=== PATIENT | female | born 1950 | race Caucasian/White ===

== ENCOUNTER 2017-06-05 17:59 | Inpatient (IN) | payer OTHER ==
[~2017-06-05] VITALS: Ht 167.6 cm; Wt 72.1 kg
[~2017-06-05 17:59] MED LIST: ADULT LOW DOSE81 MG PO; ALDACTONE25 M1 PO; AMBIEN PO; AMIODARONE HCL200 M1 PO; AMIODARONE HCL400 M1 PO; ASPIR-LOW81 M1 PO; ATORVASTATIN CA10 M1 PO; BISOPROLOL FUMAR5 M1 PO; CALCIUM600 M1 PO; CALCIUM600 MG PO; CARVEDILOL12.5 M1 PO; CARVEDILOL25 M1 PO; COREG12.5 M1 PO; COZAAR50 M1 PO; FISH OIL 1,2001 EAC4 PO; FLECAINIDE ACET50 M1 PO; INDERAL PO; LASIX40 M1 PO; LISINOPRIL5 MG PO; MULTIVITAMIN1 TAB PO; OMEPRAZOLE40 M2 PO; PAROXETINE HCL10 M2 PO; PAXIL CR12.5 MG PO; POTASSIUM CHLO20 ME3 PO; PREDNISONE20 M1 PO; PROAIR HFA8.5 GM IH; PROPRANOLOL HCL80 M3 PO; SAVAYSA60 MG PO; SIMVASTATIN40 M1 PO; SIMVASTATIN40 MG PO; TYLENOL325 M2 PO; VENTOLIN HFA18 G2 INH; VITAMIN D PO; VITAMIN D2000 UNIT PO; XARELTO20 M1 PO
[2017-06-05] MEDS ORDERED: TYLENOL EXTRA500 M1 PO (19:41)
[2017-06-05] MEDS ORDERED: LIPITOR10 M1 PO (19:42)
[2017-06-05] MEDS ORDERED: ASPIRIN EC81 MG PO (19:42)
[2017-06-05] MEDS ORDERED: AUGMENTIN 875-1 EAC2 PO (19:42)
[2017-06-05] MEDS ORDERED: ZIAC 2.5-6.251 EACH PO ×2 (19:43→19:51)
[2017-06-05] MEDS ORDERED: CALCIUM 600 +1 EA10 PO (19:44)
[2017-06-05] MEDS ORDERED: HYDROCODON-ACE1 EA16 PO (19:46)
[2017-06-05] MEDS ORDERED: DULERA 200 MCG/13 G1 INH (19:46)
[2017-06-05] MEDS ORDERED: COZAAR25 M1 PO (19:47)
[2017-06-05] MEDS ORDERED: OMEPRAZOLE40 M2 PO (19:47)
[2017-06-05] MEDS ORDERED: PAXIL10 M1 PO (19:48)
[2017-06-05] MEDS ORDERED: SPIRONOLACTONE25 M2 PO (19:49)
[2017-06-05] MEDS ORDERED: D3-20002000 UNIT PO (19:51)
[2017-06-05] MEDS ORDERED: XARELTO20 M1 PO (19:51)
[2017-06-05 21:05] LABS: BASO ABSOLUTE COUNT 0.1 tho/cmm (0.0-0.2); EOS % 1.9 % (0-7); EOSINOPHIL ABSOLUTE COUNT 0.2 tho/cmm (0.0-0.7); IMMATURE GRANULOCYTES ABSOLUTE 0.01 tho/cmm (0-0.03); IMMATURE GRANULOCYTES PERCENT 0.1 % (0-0.3); LYMPH % 23.7 % (20-45); LYMPH ABSOLUTE COUNT 1.9 tho/cmm (0.8-4.5); MCH (MEAN CORPUSCULAR HGB) 21.9 pg (28.0-32.0); MCV (MEAN CELL VOLUME) 73.4 fl (82.0-96.0); MEAN PLATELET VOLUME 9.4 cmc (9.4-12.4); MONO % 7.6 % (0-12); MONOCYTE ABSOLUTE COUNT 0.6 tho/cmm (0.0-1.2); NEUTROPHIL ABSOLUTE COUNT 5.2 tho/cmm (1.6-8.0); NEUTROPHIL-AUTOMATED 5.2 tho/cmm (1.6-8.0); NEUTROPHILS % 65.7 % (40-80); PLATELET COUNT 291 tho/cmm (150-450); WHITE BLOOD COUNT 7.9 tho/cmm (4.0-10.0)
[2017-06-05 21:08] LABS: HCT-HEMATOCRIT 23.5 % (34.0-49.0); MCHC MEAN CORPUSCULAR HGB CONC 29.8 % (32.0-36.0)
[2017-06-05 21:10] LABS: INR 1.4 INR (0.9-1.1); PROTHROMBIN TIME 16.9 SECONDS (9.0-13.6)
[2017-06-05 21:22] LABS: ALB/GLOB RATIO 0.9 (0.8-2.0); ALBUMIN 3.2 g/dl (3.5-5.0); ALKALINE PHOSPHATASE 74 U/L (33-138); ALT/SGPT 16 U/L (12-78); ANION GAP 10 mmol/L (0-20); AST/SGOT 13 U/L (10-40); BILIRUBIN,TOTAL 0.7 mg/dl (0-1.5); BLOOD UREA NITROGEN 14 mg/dl (6-24); CARBON DIOXIDE-VENOUS 25 mmol/L (22-32); CHLORIDE 106 mmol/l (96-110); CREATININE 1.04 mg/dl (0.50-1.10); GLUCOSE 89 mg/dL (70-110); SODIUM 137 mmol/L (135-145); eGFR VALUE FOR BLACK 66 mL/Min
[2017-06-06 05:31] LABS: BASO % 0.8 % (0-2); BASO ABSOLUTE COUNT 0.1 tho/cmm (0.0-0.2); EOS % 3.3 % (0-7); EOSINOPHIL ABSOLUTE COUNT 0.2 tho/cmm (0.0-0.7); HGB-HEMOGLOBIN 6.6 gm/dl (12.0-15.5); IMMATURE GRANULOCYTES ABSOLUTE 0.01 tho/cmm (0-0.03); IMMATURE GRANULOCYTES PERCENT 0.2 % (0-0.3); LYMPH ABSOLUTE COUNT 1.7 tho/cmm (0.8-4.5); MCH (MEAN CORPUSCULAR HGB) 21.9 pg (28.0-32.0); MCV (MEAN CELL VOLUME) 73.2 fl (82.0-96.0); MEAN PLATELET VOLUME 9.3 cmc (9.4-12.4); MONO % 8.6 % (0-12); MONOCYTE ABSOLUTE COUNT 0.5 tho/cmm (0.0-1.2); NEUTROPHIL ABSOLUTE COUNT 3.8 tho/cmm (1.6-8.0); NEUTROPHIL-AUTOMATED 3.8 tho/cmm (1.6-8.0); NEUTROPHILS % 60.1 % (40-80); PLATELET COUNT 273 tho/cmm (150-450); RED BLOOD COUNT 3.02 mil/cmm (4.00-5.20); RED CELL DISTRIBUTION WIDTH 15.9 % (12.4-16.4); WHITE BLOOD COUNT 6.3 tho/cmm (4.0-10.0)
[2017-06-06 05:40] LABS: HCT-HEMATOCRIT 22.1 % (34.0-49.0); MCHC MEAN CORPUSCULAR HGB CONC 29.9 % (32.0-36.0)
[2017-06-06 05:49] LABS: ANION GAP 15 mmol/L (0-20); BLOOD UREA NITROGEN 13 mg/dl (6-24); CALCIUM 8.6 mg/dl (8.5-10.5); CARBON DIOXIDE-VENOUS 23 mmol/L (22-32); CHLORIDE 111 mmol/l (96-110); CREATININE 0.99 mg/dl (0.50-1.10); GLUCOSE 82 mg/dL (70-110); POTASSIUM 3.7 mmol/L (3.7-5.1); SODIUM 145 mmol/L (135-145); eGFR VALUE FOR BLACK 70 mL/Min
[2017-06-06 17:00] LABS: MCV (MEAN CELL VOLUME) 74.5 fl (82.0-96.0); RED CELL DISTRIBUTION WIDTH 16.6 % (12.4-16.4)
[2017-06-06 17:27] LABS: HCT-HEMATOCRIT 28.1 % (34.0-49.0); HGB-HEMOGLOBIN 8.7 gm/dl (12.0-15.5)
[2017-06-06] MEDS ORDERED: BISOPROLOL FUMAR5 M1 PO (17:35)
[2017-06-07 05:20] LABS: INR 1.2 INR (0.9-1.1); PROTHROMBIN TIME 13.9 SECONDS (9.0-13.6)
[2017-06-07 05:22] LABS: HCT-HEMATOCRIT 28.6 % (34.0-49.0); HGB-HEMOGLOBIN 8.9 gm/dl (12.0-15.5); MCV (MEAN CELL VOLUME) 74.3 fl (82.0-96.0); RED CELL DISTRIBUTION WIDTH 16.9 % (12.4-16.4)
[2017-06-07 05:37] LABS: ANION GAP 13 mmol/L (0-20); BLOOD UREA NITROGEN 12 mg/dl (6-24); CALCIUM 8.9 mg/dl (8.5-10.5); CARBON DIOXIDE-VENOUS 23 mmol/L (22-32); CHLORIDE 112 mmol/l (96-110); CREATININE 0.92 mg/dl (0.50-1.10); GLUCOSE 97 mg/dL (70-110); POTASSIUM 3.4 mmol/L (3.7-5.1); SODIUM 145 mmol/L (135-145); eGFR VALUE FOR BLACK 76 mL/Min
[2017-06-07 17:06] LABS: HCT-HEMATOCRIT 28.6 % (34.0-49.0); HGB-HEMOGLOBIN 8.6 gm/dl (12.0-15.5); MCV (MEAN CELL VOLUME) 76.1 fl (82.0-96.0); RED CELL DISTRIBUTION WIDTH 17.2 % (12.4-16.4)
[2017-06-08 04:44] LABS: BASO % 0.9 % (0-2); BASO ABSOLUTE COUNT 0.1 tho/cmm (0.0-0.2); EOSINOPHIL ABSOLUTE COUNT 0.3 tho/cmm (0.0-0.7); HCT-HEMATOCRIT 26.2 % (34.0-49.0); HGB-HEMOGLOBIN 8.1 gm/dl (12.0-15.5); IMMATURE GRANULOCYTES ABSOLUTE 0.01 tho/cmm (0-0.03); IMMATURE GRANULOCYTES PERCENT 0.1 % (0-0.3); LYMPH % 19.6 % (20-45); LYMPH ABSOLUTE COUNT 1.6 tho/cmm (0.8-4.5); MCH (MEAN CORPUSCULAR HGB) 23.3 pg (28.0-32.0); MCHC MEAN CORPUSCULAR HGB CONC 30.9 % (32.0-36.0); MCV (MEAN CELL VOLUME) 75.5 fl (82.0-96.0); MEAN PLATELET VOLUME 9.5 cmc (9.4-12.4); MONO % 7.5 % (0-12); MONOCYTE ABSOLUTE COUNT 0.6 tho/cmm (0.0-1.2); NEUTROPHIL ABSOLUTE COUNT 5.5 tho/cmm (1.6-8.0); NEUTROPHIL-AUTOMATED 5.5 tho/cmm (1.6-8.0); NEUTROPHILS % 67.9 % (40-80); PLATELET COUNT 275 tho/cmm (150-450); RED BLOOD COUNT 3.47 mil/cmm (4.00-5.20); RED CELL DISTRIBUTION WIDTH 17.4 % (12.4-16.4); WHITE BLOOD COUNT 8.2 tho/cmm (4.0-10.0)
[2017-06-08 04:55] LABS: ANION GAP 10 mmol/L (0-20); BLOOD UREA NITROGEN 15 mg/dl (6-24); CALCIUM 8.9 mg/dl (8.5-10.5); CARBON DIOXIDE-VENOUS 22 mmol/L (22-32); CHLORIDE 112 mmol/l (96-110); CREATININE 0.96 mg/dl (0.50-1.10); GLUCOSE 88 mg/dL (70-110); POTASSIUM 3.9 mmol/L (3.7-5.1); SODIUM 140 mmol/L (135-145); eGFR VALUE FOR BLACK 72 mL/Min
[2017-06-08] MEDS ORDERED: ANUSOL-HC25 MG PR (14:05)
== END 2017-06-08 14:55 | DRG 394 ==
LOC: PCUA 17:59
PROVIDERS: Family Medicine; Nurse Practitioner; Specialist; ADMIT Family Medicine
PROC: 0DB98ZX Excision of Duodenum, Via Natural or Artificial Opening Endoscopic, Diagnostic (ICD-10-PCS; principal; 2017-06-07)
PROC: 0DBK8ZZ Excision of Ascending Colon, Via Natural or Artificial Opening Endoscopic (ICD-10-PCS; 2017-06-07)
DX: K64.4 Residual hemorrhoidal skin tags (principal); I50.42 Chronic combined systolic (congestive) and diastolic (congestive) heart failure; I42.9 Cardiomyopathy, unspecified; I48.0 Paroxysmal atrial fibrillation; I11.0 Hypertensive heart disease with heart failure; D62 Acute posthemorrhagic anemia; I25.10 Atherosclerotic heart disease of native coronary artery without angina pectoris; K21.9 Gastro-esophageal reflux disease without esophagitis; F32.9 Major depressive disorder, single episode, unspecified; E78.5 Hyperlipidemia, unspecified; Z82.49 Family history of ischemic heart disease and other diseases of the circulatory system; Z82.0 Family history of epilepsy and other diseases of the nervous system; Z80.8 Family history of malignant neoplasm of other organs or systems; Z87.891 Personal history of nicotine dependence; Z79.82 Long term (current) use of aspirin; Z79.02 Long term (current) use of antithrombotics/antiplatelets; Z79.899 Other long term (current) drug therapy; Z85.038 Personal history of other malignant neoplasm of large intestine; E87.6 Hypokalemia
CPT/HCPCS: C1751; C9113; J1940; J3480; J7030; J7050; P9016